=== PATIENT | male | born 1960 | race African-American/Black ===

== ENCOUNTER 2018-08-28 05:15 | Day surgery (SDC) | payer OTHER ==
[~2018-08-28] VITALS: Ht 160 cm; Wt 67.1 kg
[2018-08-28 05:44] VITALS: BP 142/94
[2018-08-28] MEDS ORDERED: CELECOXIB 100 MG CAPSULE PO ONE (06:00)
[2018-08-28] MEDS ORDERED: oxyCODONE HCL SR 10MG TAB.SR.12H PO ONE (06:00)
[2018-08-28] MEDS ORDERED: ACETAMINOPHEN ES 500 MG TABLET PO ONE (06:00)
[2018-08-28] MEDS ORDERED: METOCLOPRAMIDE HCL 10 MG/2 ML VIAL IV ONE (06:00)
[2018-08-28] MEDS ORDERED: ACETAMINOPHEN ES 500 MG TABLET ONE (06:21)
[2018-08-28] MEDS ORDERED: KETOROLAC TROMETHAMINE INJ 30 MG/ML VIAL ONE (06:48)
[2018-08-28] MEDS ORDERED: BACITRACIN 50000 UNITS/VIAL ONE (06:49)
[2018-08-28] MEDS ORDERED: MORPHINE SULFATE INJ 4 MG/ML DISP.SYRIN ONE (06:49)
[2018-08-28] MEDS ORDERED: ANESTHESIA TRAY IN PYXIS 1 EA TRAY MC ONE (06:49)
[2018-08-28] MEDS ORDERED: BUPIVACAINE MPF 0.5% W/EPI INJ 30 ML VIAL ONE (06:49)
--- NOTE | 2018-08-28 08:03 | NUR ---
PT SURGERY CANCELLED DUE TO PT EATING AT THE NIGHT TIME. PT IV WAS REMOVED AND BREAKFAST GIVEN TO PT. PT WAS OBSERVED AND D/C ON HIS OWN ACCORD SAYS HE WILL RESCHEDULE WITH SURGEONS OFFICE.
[2018-08-28] MEDS ORDERED: METF-440 PO (08:07)
== END 2018-08-28 08:03 | disposition home or self-care (01) ==
LOC: UNDOADMIN 05:15 → MEDSG1 05:15 → DS 05:15
PROVIDERS: ATTEND Orthopaedic Surgery
DX: M25.512 Pain in left shoulder (principal); Z53.9 Procedure and treatment not carried out, unspecified reason; E11.9 Type 2 diabetes mellitus without complications; Z79.84 Long term (current) use of oral hypoglycemic drugs; Z79.899 Other long term (current) drug therapy
CPT/HCPCS: 82962; J2765; J1885; J2270; J3490

== ENCOUNTER 2018-09-18 05:21 | Inpatient (IN) | payer OTHER ==
[2018-09-18] VITALS (12 sets, daily range): BP systolic 106–136; BP diastolic 47–84
[~2018-09-18] VITALS: Ht 162.6 cm; Wt 68.5 kg
[~2018-09-18 05:21] MED LIST: METF-440 PO
[2018-09-18] MEDS ORDERED: NAPR-1164 PO (05:45)
[2018-09-18] MEDS ORDERED: METF-440 PO (05:45)
[2018-09-18] MEDS ORDERED: METOCLOPRAMIDE HCL 10 MG/2 ML VIAL IV SCH (06:00)
[2018-09-18] MEDS ORDERED: oxyCODONE HCL SR 10MG TAB.SR.12H PO SCH (06:00)
[2018-09-18] MEDS ORDERED: ACETAMINOPHEN 325 MG TABLET PO PRN ×2 (06:00→10:30)
[2018-09-18] MEDS ORDERED: CELECOXIB 100 MG CAPSULE PO SCH (06:00)
--- NOTE | 2018-09-18 06:00 | NUR ---
MS RN NOTES Patient came to unit via wheelchair. Patient is alert, oriented x 4. Breathing even and unlabored. Not in any distress, on room air. Vital signs taken and recorded. IV access started on R forearm g#20 with good blood return. Pre-op medications given as ordered. Belongings checked by TAMICA Viveros Oriented to call light; placed within easy reach, bed in low, locked position.
[2018-09-18 06:22] LABS: EOSINOPHILS % (AUTO) 2.6 % (0.0-6.0); HEMATOCRIT 46 % (39-51); HEMOGLOBIN 15.4 g/dL (13.5-17.5); LYMPHOCYTES # (AUTO) 1.7 /CMM (0.8-4.8); LYMPHOCYTES % (AUTO) 41.5 % (20.0-44.0); MEAN CORPUSCULAR HGB CONC 33 g/dl (31.0-36.0); MEAN CORPUSCULAR VOLUME 81 fL (80-96); MONOCYTES # (AUTO) 0.4 /CMM (0.1-1.30); MONOCYTES % (AUTO) 9.8 % (2.0-12.0); NEUTROPHILS # (AUTO) 1.9 /CMM (1.8-8.9); NEUTROPHILS % (AUTO) 45.1 % (43.0-81.0); PLATELET COUNT (AUTO) 324 /CMM (150-450); RED BLOOD CELL COUNT(AUTO) 5.72 MIL/uL (4.5-6.0); WHITE BLOOD COUNT (AUTO) 4.2 K/uL (4.3-11.0)
[2018-09-18 06:24] LABS: APPEARANCE,URINE CLEAR (CLEAR); BILIRUBIN,URINE NEGATIVE (NEGATIVE); BLOOD, URINE NEGATIVE Ery/uL (NEGATIVE); COLOR,URINE YELLOW (YELLOW); KETONES,URINE NEGATIVE (NEGATIVE); LEUKOCYTE ESTERASE ,URINE NEGATIVE (NEGATIVE); NITRITE, URINE NEGATIVE (NEGATIVE); PROTEIN,URINE NEGATIVE (NEGATIVE); UGLUCOSE 3+ mg/dL (NEGATIVE); UROBILINOGEN,URINE 0.2 EU/dL (0.2)
[2018-09-18] MEDS ORDERED: oxyCODONE HCL SR 10MG TAB.SR.12H PO ONE (06:30)
[2018-09-18] MEDS ORDERED: METOCLOPRAMIDE HCL 10 MG/2 ML VIAL IV ONE (06:30)
[2018-09-18] MEDS ORDERED: ACETAMINOPHEN ES 500 MG TABLET PO ONE (06:30)
[2018-09-18] MEDS ORDERED: CELECOXIB 100 MG CAPSULE PO ONE (06:30)
--- NOTE | 2018-09-18 06:30 | NUR ---
RN NOTES Anesthesiologist currently at bedside
[2018-09-18] MEDS ORDERED: MIDAZOLAM HCL 2 MG/2ML VIAL ONE (06:34)
[2018-09-18] MEDS ORDERED: FAMOTIDINE/PF INJ 20 MG/2 ML VIAL IV ONE (06:35)
[2018-09-18] MEDS ORDERED: FENTANYL PF 250MCG/5ML AMPUL ONE (06:35)
[2018-09-18] MEDS ORDERED: ROCURONIUM BROMIDE 50 MG/5 ML ONE (06:36)
[2018-09-18] MEDS ORDERED: BUPIVACAINE 0.25% 75 MG/30 ML VIAL ONE (06:36)
[2018-09-18 06:38] LABS: CREATININE 0.7 mg/dL (0.6-1.3); POTASSIUM 4.4 mmol/L (3.5-5.1)
[2018-09-18] MEDS ORDERED: KETOROLAC TROMETHAMINE INJ 30 MG/ML VIAL ONE ×2 (06:38→10:05)
[2018-09-18] MEDS ORDERED: ANESTHESIA TRAY IN PYXIS 1 EA TRAY MC ONE (06:38)
[2018-09-18 06:39] LABS: BACTERIA,URINE None seen /HPF (None Seen); RBC,URINE NONE SEEN /HPF (0-2); WBC,URINE NONE SEEN /HPF (0-3)
[2018-09-18] MEDS ORDERED: BUPIVACAINE MPF 0.5% W/EPI INJ 30 ML VIAL ONE (06:39)
[2018-09-18] MEDS ORDERED: MORPHINE SULFATE INJ 4 MG/ML DISP.SYRIN ONE (06:39)
[2018-09-18 06:40] LABS: SQUAMOUS EPITHELIAL CELL,UR None Seen /HPF (None Seen); URINE AMORPHOUS URATE Rare /HPF (None Seen)
[2018-09-18 06:43] LABS: ALBUMIN 4.1 g/dL (3.4-5.0); BILIRUBIN,TOTAL 0.4 mg/dL (0.2-1.0)
--- NOTE | 2018-09-18 06:55 | NUR ---
RN NOTES Patient wheeled down for surgery
[2018-09-18] MEDS ORDERED: BACITRACIN 50000 UNITS/VIAL ONE (07:05)
[2018-09-18] MEDS ORDERED: TRANEXAMIC ACID 1,500 MG in SODIUM CHLORIDE IRRIG SOLUTION 85 ML IR ONE (08:00)
[2018-09-18] MEDS ORDERED: TRANEXAMIC ACID 1,500 MG in IV NS 0.9% 50 ML IV ONE (08:30)
[2018-09-18] MEDS ORDERED: oxyCODONE IR immediate release 5 MG ONE (09:49)
[2018-09-18] MEDS ORDERED: ZOLPIDEM TARTRATE 5 MG TABLET PO PRN (10:30)
[2018-09-18] MEDS ORDERED: BISACODYL SUPP (10 MG) 10 MG/SUPP.RECT SUPP.RECT RC PRN (10:30)
[2018-09-18] MEDS ORDERED: DOCUSATE SODIUM 100 MG CAPSULE PO PRN (10:30)
[2018-09-18] MEDS ORDERED: MAGNESIUM HYDROXIDE 30 ML UDC PO PRN (10:30)
[2018-09-18] MEDS ORDERED: HYDROMORPHONE 1 MG/1 ML DISP.SYRIN IV PRN (10:30)
--- NOTE | 2018-09-18 11:25 | NUR ---
m/s veneer glue spreader: post op received pt from recovery room with dx: s/p Left Reverse Total Shoulder Arthroplasty. sling in place with dressing to left shoulder. report given by daniel (rn). no c/o pain or any discomfort. all orders carried out. lunch ordered. oriented to room and surroundings. vss. no distress noted. will continue to monitor.
[2018-09-18] MEDS ORDERED: ASPIRIN EC 325 MG TABLET.DR PO ONE (11:30)
[2018-09-18] MEDS ORDERED: ONDANSETRON HCL/PF 4 MG/2 ML VIAL IVP PRN (11:30)
[2018-09-18] MEDS ORDERED: HYDROCODONE/APAP 5/325MG 1 EACH TABLET PO PRN ×2 (11:30→23:00)
--- NOTE | 2018-09-18 11:40 | NUR ---
m/s employee communications intern: notes dr. smith notified re: post op with new orders. orders read back and carried out and acknowledged.
[2018-09-18] MEDS ORDERED: DEXTROSE 50%-WATER 50 ML DISP.SYRIN IV PRN ×2 (12:00→12:30)
[2018-09-18] MEDS ORDERED: INSULIN ASPART/LISPRO 100 UNIT/ML CARTRIDGE SQ PRN (12:00)
[2018-09-18] MEDS ORDERED: BLOOD SUGAR DIAGNOSTIC 1 EACH STRIP IN SCH (12:00)
[2018-09-18] MEDS: KETOROLAC TROMETHAMINE INJ 30 MG/ML VIAL IV SCH ×3 (12:32→23:20)
[2018-09-18] MEDS: FERROUS SULFATE (325 MG) 325 MG/TAB TABLET PO SCH ×2 (12:39→17:28)
[2018-09-18] MEDS: INSULIN REGULAR, HUMAN 100 UNIT/ML 3 ML VIAL SQ PRN ×3 (12:43→21:49)
[2018-09-18] MEDS: IV 1/2NS 1000 ML 1,000 ML IV PRN ×2 (12:50→21:41)
--- NOTE | 2018-09-18 13:00 | NUR ---
m/s bindery supervisor: notes in bed awake, still having lunch. no c/o pain or any discomfort. instructed to call for assistance. will monitor.
--- NOTE | 2018-09-18 15:00 | NUR ---
m/s manager green: notes resting comfortable in bed. vss. no c/o pain or any discomfort. instructed to call for assistance. will monitor.
--- NOTE | 2018-09-18 16:40 | NUR ---
Patient came for an elective surgery s/p Left Reverse Total Shoulder Arthroplasty. He lives at home with family.His baseline- was ambulatory and independent with adl's. He owns a shower chair, no homehealth reported. His pcp is Dr. Dale [phone]. He plan to return home once discharge. Addendum: 09/18/18 at 2144 by KEVIN ALLEN RN Amended: Links added.
[2018-09-18] MEDS: ANCEF 1 GM/50 ML D5W IV SCH ×4 (16:57→23:19)
--- NOTE | 2018-09-18 17:00 | NUR ---
m/s surgery nurse: notes dinner served. hob elevated. voiced no discomfort. circulation check every hourly since arrival to unit, pt has good sensation. sling remains in place. instructed to call for assistance.
[2018-09-18] MEDS: CELECOXIB 100 MG CAPSULE PO SCH (17:28)
[2018-09-18] MEDS: BLOOD SUGAR DIAGNOSTIC 1 EACH STRIP IN SCH ×2 (17:28→21:47)
--- NOTE | 2018-09-18 18:30 | NUR ---
m/s signal system testing maintainer: notes taken pt to the bathroom and pt voided at this time. returned safely back to bed. left upper ext remain nwb with sling attached. instructed to call for assistance.
--- NOTE | 2018-09-18 18:45 | NUR ---
m/s rope walker: notes in bed awake, still having dinner with hob elevated. needs attended. iv fluids infusing well. no distress noted. instructed to call for assistance. will monitor.
--- NOTE | 2018-09-18 19:00 | NUR ---
m/s superintendent production: notes report given to ron (rn) for continuity of care.
--- NOTE | 2018-09-18 19:10 | NUR ---
MS RN NOTE RECEIVED PT IN STABLE CONDITION A/O X4, CURRENTLY IN BED FINISHING DINNER. NO SIGNS OF SOB OR DISTRESS, NO C/O PAIN. SLING ON L SHOULDER REMAINS IN PLACE. PT AWARE TO KEEP EXTREMITY NWB. SURGICAL INCISIONS IN PLACE, INTACT, WITH NO DRAINAGE NOTED. ALL CURRENT NEEDS ATTENDED TO. BED LOW, LOCKED UPPER RAILS UP, AND CALL LIGHT WITHIN REACH. WILL CONT. TO MONITOR.
--- NOTE | 2018-09-18 22:56 | NUR ---
MS RN NOTE 24 HR CHART CHECKED FOR NEW ORDERS. WROTE NORCO TO BE SCHEDULED Q4H X 7 DAYS. PER CHARGE NURSE SHAHEEN, PT IS GOING HOME IN AM WITH PRESCRIPTION FROM WITH PRN NORCO. PT HAS NOT TAKEN ANY NORCO SINCE HIS STAY HERE AND IS ON AROUND THE CLOCK TORADOL. WILL CONT. TO MONITOR PT PAIN AT THIS TIME.
[2018-09-18] MEDS ORDERED: HYDROCODONE/APAP 5/325MG 1 EACH TABLET PO SCH (23:30)
[2018-09-19] MEDS ORDERED: HYDROCODONE/APAP 5/325MG 1 EACH TABLET PO SCH
[2018-09-19] MEDS: KETOROLAC TROMETHAMINE INJ 30 MG/ML VIAL IV SCH (05:42)
--- NOTE | 2018-09-19 06:06 | NUR ---
MS RN NOTE PT NOTED WITH BLOOD SUGAR OF 138. PT REFUSED INSULIN COVERAGE. RISKS MADE AWARE WITH VERBALIZATION OF UNDERSTANDING. WILL CONT TO MONITOR.
[2018-09-19 06:22] LABS: CALCIUM, SERUM 7.9 mg/dL (8.5-10.1); CREATININE 0.7 mg/dL (0.6-1.3); POTASSIUM 3.4 mmol/L (3.5-5.1)
[2018-09-19] MEDS: BLOOD SUGAR DIAGNOSTIC 1 EACH STRIP IN SCH (06:30)
[2018-09-19 06:37] LABS: BASOPHILS % (AUTO) 0.2 % (0.0-2.0); EOSINOPHILS % (AUTO) 0.2 % (0.0-6.0); HEMATOCRIT 38 % (39-51); HEMOGLOBIN 12.7 g/dL (13.5-17.5); LYMPHOCYTES # (AUTO) 1.1 /CMM (0.8-4.8); LYMPHOCYTES % (AUTO) 9.9 % (20.0-44.0); MEAN CORPUSCULAR HGB CONC 34 g/dl (31.0-36.0); MEAN CORPUSCULAR VOLUME 80 fL (80-96); MONOCYTES # (AUTO) 1.1 /CMM (0.1-1.30); MONOCYTES % (AUTO) 10.2 % (2.0-12.0); NEUTROPHILS # (AUTO) 8.4 /CMM (1.8-8.9); NEUTROPHILS % (AUTO) 79.5 % (43.0-81.0); PLATELET COUNT (AUTO) 284 /CMM (150-450); RED BLOOD CELL COUNT(AUTO) 4.71 MIL/uL (4.5-6.0); WHITE BLOOD COUNT (AUTO) 10.6 K/uL (4.3-11.0)
--- NOTE | 2018-09-19 07:27 | NUR ---
MS/RN OPENING NOTE PATIENT IN BED IN STABLE CONDITION. A/O X 4. NO SIGNS OF ACUTE DISTRESS. NO COMPLAIN OF PAIN OR DISCOMFORT. ALL NEEDS ATTENDED TO. CALL LIGHT WITHIN REACH. WILL CONTINUE TO MONITOR TO ENSURE SAFETY.
[2018-09-19 08:00] VITALS: BP 126/75
[2018-09-19] MEDS: CELECOXIB 100 MG CAPSULE PO SCH (08:08)
[2018-09-19] MEDS: FERROUS SULFATE (325 MG) 325 MG/TAB TABLET PO SCH (08:08)
--- NOTE | 2018-09-19 08:58 | NUR ---
MS/RN PAGED DR MENDEZ TO MAKE SURE PATIENT CLEAR FOR DISCHARGE PER MEDICAL DOCTOR PATIENT CLEAR FOR DISCHARGE TODAY.
[2018-09-19] MEDS ORDERED: METFORMIN 500 MG TABLET PO SCH (09:00)
[2018-09-19] MEDS ORDERED: ASPIRIN EC 325 MG TABLET.DR PO SCH (09:00)
--- NOTE | 2018-09-19 09:30 | NUR ---
MS/RN RECEIVED CALL FROM DR MARTINEZ AND PER DR MARTINEZ PATIENT CLEAR TO BE DISCHARGE FROM HIS STANDPOINT,PATIENT TO FOLLOW UP WITH WITHIN A WEEK AND ALSO PER DR MARTINEZ SOMEONE FROM HIS OFFICE WILL CALL THE PATIENT THIS WEEKEND TO SCHEDULE APPT. FOR COMING WEEK. PATIENT AWARE.
--- NOTE | 2018-09-19 10:40 | NUR ---
MS/LIQUIFIED NATURAL GAS TECHNICIAN PATIENT DISCHARGE HOME IN STABLE CONDITION. A/O X 4, NO SIGNS OF ACUTE DISTRESS.NO COMPLAIN OF PAIN OR DISCOMFORT. DISCHARGE EDUCATION AND TEACHINGS PROVIDED AND TRANSLATED IN [place], VERBALIZED UNDERSTANDINGS OF TEACHINGS. DR MARTINEZ OFFICE NUMBER PROVIDED AND MADE AWARE TO FOLLOW UP WITH DR MARTINEZ NEXT WEEK AND EXPECT A CALL FROM DR MARTINEZ OFFICE OVER A WEEKEND TO CONFIRM APPT. NAME BAND AND IV LINE REMOVED. DRUG PRESCRIPTION PROVIDED. ALL NEEDS ATTENDED TO AT THIS TIME. LEFT IN STABLE CONDITION VIA PRIVATE CAR ACCOMPANIED BY BROTHER.
== END 2018-09-19 10:40 | disposition home or self-care (01) | DRG 483 ==
LOC: DS 05:21 → MED 05:22
PROVIDERS: ADMIT Internal Medicine; ATTEND Internal Medicine
PROC: 0RRK00Z Replacement of Left Shoulder Joint with Reverse Ball and Socket Synthetic Substitute, Open Approach (ICD-10-PCS; principal; 2018-09-18)
DX: M75.102 Unspecified rotator cuff tear or rupture of left shoulder, not specified as traumatic (principal); M19.012 Primary osteoarthritis, left shoulder; E11.9 Type 2 diabetes mellitus without complications; I10 Essential (primary) hypertension; D63.8 Anemia in other chronic diseases classified elsewhere; Z79.84 Long term (current) use of oral hypoglycemic drugs
CPT/HCPCS: 36415; 73030-TC; 80048-TC; 80053-TC; 81000-TC; 82962-TC; 85025-TC; 85730-TC; 87081-TC; 97116-TC; 97530-TC; A4216; A4217; A4565; G0378; J0690; J1815; J1885; J2250; J2270; J2405; J2704; J2710; J2765; J3010; J3490; J7060